=== PATIENT | female | born 1960 | race Caucasian/White ===

== ENCOUNTER 2020-10-15 16:38 | Inpatient (IN) | payer MEDICAID, OTHER ==
[~2020-10-15] VITALS: Ht 167.6 cm; Wt 68.2 kg
[2020-10-15] MEDS ORDERED: cloNIDine HCL 0.1 MG TAB PO ONE (17:00)
[2020-10-15] MEDS ORDERED: methylPREDNISolone SOD SUCC 125 MG/2 ML VL IV ONE (17:15)
[2020-10-15 17:45] LABS: Basophils # (auto) 0 10 ^3/uL (0-0.2); Basophils % (auto) 0.8 % (0.0-2.0); Eosinophils # (auto) 0.1 10 ^3/uL (0-0.8); Eosinophils % (auto) 2.1 % (0.0-7.0); Hematocrit 37.3 % (36.0-46.0); Hemoglobin 12.5 g/dL (12.2-16.2); Lymphocytes # (auto) 1.5 10 ^3/uL (0.4-5.4); Lymphocytes % (auto) 31.1 % (10.0-50.0); Mean Corpuscular Hemoglobin 31.3 pg (28.0-32.0); Mean Corpuscular Hgb Conc. 33.6 g/dL (32.0-36.0); Mean Corpuscular Volume 93.3 fL (80.0-100.0); Monocytes # (auto) 0.3 10 ^3/uL (0-1.3); Monocytes % (auto) 5.5 % (0.0-12.0); Neutrophils # (auto) 2.9 10 ^3/uL (1.6-8.6); Neutrophils % (auto) 60.5 % (37.0-80.0); Red Cell Distribution Width 15.7 % (11.8-14.3); White Blood Cell 4.9 10^3/uL (4.4-10.8)
[2020-10-15 18:01] LABS: Albumin 3.4 g/dL (3.4-5.0); Calcium 8.7 mg/dL (8.5-10.1); Magnesium 2.3 mg/dL (1.6-2.6); Potassium 3.8 mmol/L (3.5-5.1)
[2020-10-15 18:03] LABS: BUN/Creatinine Ratio 13.2
[2020-10-15 18:20] LABS: Bilirubin, Total 0.7 mg/dL (0.2-1.0); Total Protein 7.8 g/dL (6.4-8.2)
[2020-10-15 19:18] LABS: INR 1.06 (0.9-1.15); Partial Thromboplastin Time 26.4 sec (23.0-31.2)
[2020-10-15] MEDS ORDERED: METOPROLOL TARTRATE 25 MG TAB PO ONE (20:45)
[2020-10-15] MEDS ORDERED: cefTRIAXone SOD 1,000 MG VL IM ONE (20:45)
[2020-10-15] MEDS ORDERED: LIDOCAINE 2% (LOCAL ANESTH.) PF 5ml SDV ONE (21:03)
[2020-10-15] MEDS ORDERED: LIDOCAINE 2% (LOCAL ANESTH.) PF 5ml SDV IJ ONE (21:15)
[2020-10-15] MEDS ORDERED: LORazepam 0.5 MG TAB PO ONE (23:15)
[2020-10-16] MEDS ORDERED: AZITHROMYCIN 500MG/ 250ML 250 ML IV ONE
[2020-10-16] MEDS ORDERED: ALBUTEROL SULF 2.5 MG/0.5ML(0.5%) NEB SOLN NEB PRN (00:30)
[2020-10-16] MEDS ORDERED: NITROGLYCERIN 0.4 MG SL TAB SL PRN (00:30)
[2020-10-16] MEDS ORDERED: ONDANSETRON HCL 4 MG/2 ML VIAL IV PRN (00:30)
[2020-10-16] MEDS ORDERED: TEMAZEPAM 15 MG CAP PO PRN (00:30)
[2020-10-16] MEDS ORDERED: MORPHINE SULFATE INJECTION 2 MG/ML SYRG IV PRN (00:30)
[2020-10-16] MEDS ORDERED: ACETAMINOPHEN 325 MG TAB PO PRN (00:30)
[2020-10-16] MEDS ORDERED: FUROSEMIDE 20 MG/2 ML VIAL IV ONE ×2 (03:00)
[2020-10-16] MEDS ORDERED: LORazepam 2MG/ML-1ML VIAL ONE (04:22)
[2020-10-16 04:39] LABS: Urine Amorphous Crystal FEW /hpf (None Seen); Urine Bacteria FEW /hpf (None Seen); Urine Blood 1+ /uL (Negative); Urine Hyaline Cast FEW /lpf (0 - 2); Urine Specific Gravity 1.006 (1.001-1.035); Urine WBC 2 /hpf (0 - 5)
[2020-10-16 04:42] LABS: Alcohol, Urine < 3.0 mg/dL (0-10); Amphetamine Screen, Urine POSITIVE (NEGATIVE); Barbiturate Scree,Urine NEGATIVE (NEGATIVE); Benzodiazephine Screen, Urine NEGATIVE (NEGATIVE); Cannabinoid Screen, Urine NEGATIVE (NEGATIVE); Cocaine Screen, Urine NEGATIVE (NEGATIVE); Opiate Scree,Urine NEGATIVE (NEGATIVE); Phencyclidine Screen, Urine NEGATIVE (NEGATIVE)
[2020-10-16] MEDS ORDERED: LORazepam 2MG/ML-1ML VIAL IV ONE (04:45)
[2020-10-16 04:46] LABS: Lactic Acid w/Reflex 3.7 mmol/L (0.4-2.0)
[2020-10-16] MEDS: FUROSEMIDE 40 MG/4 ML VIAL IV SCH ×2 (07:00→18:20)
[2020-10-16] MEDS ORDERED: METOPROLOL TARTRATE 25 MG TAB PO SCH (10:00)
[2020-10-16] MEDS: SACUBITRIL-VALSARTAN 24mg/26mg TAB PO SCH ×2 (10:00→22:00)
[2020-10-16] MEDS: ASPirin 81 mg TAB PO SCH (10:00)
[2020-10-16] MEDS ORDERED: amLODIPine BESYLATE 5 MG TAB PO SCH (10:00)
[2020-10-16] MEDS: PANTOPRAZOLE 40 MG TAB PO SCH (10:00)
[2020-10-16] MEDS: CARVEDILOL 12.5 MG TAB PO SCH ×2 (10:00→22:00)
[2020-10-16] MEDS: ENOXAPARIN SOD 40 MG/0.4 ML SYRINGE SC SCH (10:35)
[2020-10-16] MEDS: AZITHROMYCIN 500MG/ 250ML 250 ML IV SCH (10:35)
[2020-10-16] MEDS ORDERED: LORazepam 2MG/ML-1ML VIAL IV PRN (15:45)
[2020-10-17 06:00] LABS: Basophils # (auto) 0.1 10 ^3/uL (0-0.2); Basophils % (auto) 0.8 % (0.0-2.0); Eosinophils # (auto) 0 10 ^3/uL (0-0.8); Eosinophils % (auto) 0.1 % (0.0-7.0); Hematocrit 38.4 % (36.0-46.0); Hemoglobin 12.8 g/dL (12.2-16.2); Lymphocytes # (auto) 1.7 10 ^3/uL (0.4-5.4); Lymphocytes % (auto) 21.9 % (10.0-50.0); Mean Corpuscular Hemoglobin 31.2 pg (28.0-32.0); Mean Corpuscular Hgb Conc. 33.2 g/dL (32.0-36.0); Monocytes # (auto) 0.4 10 ^3/uL (0-1.3); Monocytes % (auto) 5.1 % (0.0-12.0); Neutrophils # (auto) 5.5 10 ^3/uL (1.6-8.6); Neutrophils % (auto) 72.1 % (37.0-80.0); Nucleated Red Blood Cells % 0.1 %; Red Blood Cells 4.09 10^6/uL (4.0-5.20); Red Cell Distribution Width 15.3 % (11.8-14.3); White Blood Cell 7.6 10^3/uL (4.4-10.8)
[2020-10-17] MEDS: FUROSEMIDE 40 MG/4 ML VIAL IV SCH ×2 (06:04→18:51)
[2020-10-17 06:14] LABS: INR 1.12 (0.9-1.15); Partial Thromboplastin Time 25.1 sec (23.0-31.2)
[2020-10-17 06:49] LABS: Magnesium 2.2 mg/dL (1.6-2.6); Potassium 3.4 mmol/L (3.5-5.1)
[2020-10-17 06:53] LABS: BUN/Creatinine Ratio 18.8; Bilirubin, Total 0.6 mg/dL (0.2-1.0); Phosphorus 3.6 mg/dL (2.5-4.90); Total Protein 7.3 g/dL (6.4-8.2)
[2020-10-17] MEDS: AZITHROMYCIN 500MG/ 250ML 250 ML IV SCH (08:20)
[2020-10-17] MEDS: ENOXAPARIN SOD 40 MG/0.4 ML SYRINGE SC SCH (08:20)
[2020-10-17] MEDS: ASPirin 81 mg TAB PO SCH (08:29)
[2020-10-17] MEDS: SACUBITRIL-VALSARTAN 24mg/26mg TAB PO SCH (08:29)
[2020-10-17] MEDS: CARVEDILOL 12.5 MG TAB PO SCH ×2 (08:29→22:49)
[2020-10-17] MEDS: PANTOPRAZOLE 40 MG TAB PO SCH (08:29)
[2020-10-17] MEDS ORDERED: cefTRIAXone 1GM/50ML D5W 50 ML IV ONE (10:15)
[2020-10-17] MEDS ORDERED: POTASSIUM CHL 20 Meq TABLET PO ONE (11:45)
[2020-10-17] MEDS: hydrALAZINE HCL 10 MG TAB PO SCH ×2 (13:32→22:49)
[2020-10-17 21:46] VITALS: BP 131/77
[2020-10-17] MEDS ORDERED: ATORVASTATIN 20 MG TAB PO SCH (22:00)
[2020-10-17 23:33] VITALS: BP 131/77
[2020-10-18 05:00] VITALS: BP_SYST 111; BP_SYST 142; BP_DIAS 72; BP_DIAS 90
[2020-10-18] MEDS: hydrALAZINE HCL 10 MG TAB PO SCH (06:25)
[2020-10-18] MEDS: FUROSEMIDE 40 MG/4 ML VIAL IV SCH (06:25)
[2020-10-18 06:36] LABS: Basophils # (auto) 0 10 ^3/uL (0-0.2); Basophils % (auto) 0.7 % (0.0-2.0); Eosinophils # (auto) 0 10 ^3/uL (0-0.8); Eosinophils % (auto) 0.7 % (0.0-7.0); Hematocrit 43.4 % (36.0-46.0); Hemoglobin 14.6 g/dL (12.2-16.2); Lymphocytes # (auto) 1.6 10 ^3/uL (0.4-5.4); Lymphocytes % (auto) 31.4 % (10.0-50.0); Mean Corpuscular Hemoglobin 31.1 pg (28.0-32.0); Mean Corpuscular Hgb Conc. 33.6 g/dL (32.0-36.0); Mean Corpuscular Volume 92.5 fL (80.0-100.0); Monocytes # (auto) 0.3 10 ^3/uL (0-1.3); Monocytes % (auto) 6.4 % (0.0-12.0); Neutrophils # (auto) 3.2 10 ^3/uL (1.6-8.6); Neutrophils % (auto) 60.8 % (37.0-80.0); Nucleated Red Blood Cells % 0.1 %; Red Cell Distribution Width 15.3 % (11.8-14.3); White Blood Cell 5.2 10^3/uL (4.4-10.8)
[2020-10-18 06:46] LABS: BUN/Creatinine Ratio 19.1; Calcium 8.2 mg/dL (8.5-10.1); Potassium 3.7 mmol/L (3.5-5.1)
[2020-10-18 08:00] VITALS: BP 111/61
[2020-10-18] MEDS ORDERED: cefTRIAXone 1GM/50ML D5W 50 ML IV SCH (09:00)
[2020-10-18] MEDS: AZITHROMYCIN 500MG/ 250ML 250 ML IV SCH (09:38)
[2020-10-18] MEDS: CARVEDILOL 12.5 MG TAB PO SCH (09:39)
[2020-10-18] MEDS: PANTOPRAZOLE 40 MG TAB PO SCH (09:39)
[2020-10-18] MEDS: ENOXAPARIN SOD 40 MG/0.4 ML SYRINGE SC SCH (09:39)
[2020-10-18] MEDS: ASPirin 81 mg TAB PO SCH (09:40)
[2020-10-18] MEDS ORDERED: POTASSIUM CHL 10 Meq TABLET PO SCH (10:00)
[2020-10-18] MEDS ORDERED: LOSARTAN POTASSIUM 25 MG TAB PO ONE (12:00)
[2020-10-18 16:18] VITALS: BP_SYST 133; BP_SYST 159; BP_DIAS 75; BP_DIAS 89
[2020-10-19] MEDS ORDERED: LOSARTAN POTASSIUM 25 MG TAB PO SCH (10:00)
[2020-10-19] MEDS ORDERED: FUROSEMIDE 40 MG/4 ML VIAL IV SCH (10:00)
== END 2020-10-18 18:06 | disposition left against medical advice (07) | DRG 133 ==
LOC: ER 16:38 → TELE 16:39 → TELE-CENTR 10-17 21:43
PROVIDERS: ADMIT Nurse Practitioner; ATTEND Internal Medicine Nephrology
DX: J96.01 Acute respiratory failure with hypoxia (principal); I13.0 Hypertensive heart and chronic kidney disease with heart failure and stage 1 through stage 4 chronic kidney disease, or unspecified chronic kidney disease; E78.5 Hyperlipidemia, unspecified; F41.0 Panic disorder [episodic paroxysmal anxiety]; I50.43 Acute on chronic combined systolic (congestive) and diastolic (congestive) heart failure; I42.9 Cardiomyopathy, unspecified; I16.1 Hypertensive emergency; Z53.29 Procedure and treatment not carried out because of patient's decision for other reasons; R00.0 Tachycardia, unspecified; F23 Brief psychotic disorder; N18.32 Chronic kidney disease, stage 3b; Z20.822 Contact with and (suspected) exposure to COVID-19; G89.29 Other chronic pain; F15.10 Other stimulant abuse, uncomplicated; F19.10 Other psychoactive substance abuse, uncomplicated; M35.1 Other overlap syndromes; Z72.0 Tobacco use; Z91.041 Radiographic dye allergy status; Z91.14 Patient's other noncompliance with medication regimen; Z78.1 Physical restraint status; N17.9 Acute kidney failure, unspecified
CPT/HCPCS: 36415; 36600; 70450; 71045; 72125; 80048; 80053; 80307; 81001; 82805; 83605; 83735; 83880; 84100; 84484; 85025; 85379; 85610; 85730; 87040; 87426; 93005; 93306; 96372; 96374; 96375; G0378; J0696; J2001

== ENCOUNTER 2020-10-30 15:22 | Inpatient (IN) | payer MEDICAID ==
[~2020-10-30] VITALS: Ht 170.2 cm; Wt 77.1 kg
[2020-10-30] MEDS ORDERED: FUROSEMIDE 40 MG/4 ML VIAL IV ONE (16:00)
[2020-10-30] MEDS ORDERED: cefTRIAXone 1GM/50ML D5W 50 ML IV ONE (16:00)
[2020-10-30 16:29] LABS: Basophils # (auto) 0.1 10 ^3/uL (0-0.2); Basophils % (auto) 1.4 % (0.0-2.0); Eosinophils # (auto) 0 10 ^3/uL (0-0.8); Hemoglobin 12.7 g/dL (12.2-16.2); Lymphocytes % (auto) 23.5 % (10.0-50.0); Mean Corpuscular Hemoglobin 31.1 pg (28.0-32.0); Mean Corpuscular Hgb Conc. 33.3 g/dL (32.0-36.0); Mean Corpuscular Volume 93.5 fL (80.0-100.0); Monocytes # (auto) 0.2 10 ^3/uL (0-1.3); Monocytes % (auto) 4.1 % (0.0-12.0); Neutrophils # (auto) 2.9 10 ^3/uL (1.6-8.6); Nucleated Red Blood Cells % 0.1 %; Platelet Count (auto) 153 10^3/uL (140-450); Red Blood Cells 4.07 10^6/uL (4.0-5.20); Red Cell Distribution Width 15.5 % (11.8-14.3); White Blood Cell 4.1 10^3/uL (4.4-10.8)
[2020-10-30] MEDS ORDERED: MORPHINE SULF INJ 2 MG/ML SYRINGE 1ML IV ONE (16:30)
[2020-10-30] MEDS ORDERED: ONDANSETRON HCL 4 MG/2 ML VIAL IV ONE (16:30)
[2020-10-30 16:48] LABS: Albumin 3.3 g/dL (3.4-5.0); BUN/Creatinine Ratio 14.4; Calcium 8.4 mg/dL (8.5-10.1); Potassium 3.8 mmol/L (3.5-5.1)
[2020-10-30 16:52] LABS: Bilirubin, Total 0.7 mg/dL (0.2-1.0)
[2020-10-30] MEDS ORDERED: HYDROcodone-ACET 5/325MG TAB PO PRN (18:00)
[2020-10-30] MEDS ORDERED: NITROGLYCERIN 0.4 MG SL TAB SL PRN (18:00)
[2020-10-30] MEDS ORDERED: MORPHINE SULF INJ 2 MG/ML SYRINGE 1ML IV PRN (18:00)
[2020-10-30] MEDS ORDERED: hydrALAZINE HCL 20 MG/ML VL IV PRN (18:00)
[2020-10-30 18:55] LABS: Cholesterol 164 mg/dL (< 200); HDL Cholesterol 44 mg/dL (40-59); LDL Cholesterol 115 mg/dL (< 100); Triglycerides 89 mg/dL (< 150)
[2020-10-30] MEDS: ALBUTEROL SULF 2.5 MG/0.5ML(0.5%) NEB SOLN NEB SCH (19:47)
[2020-10-30] MEDS: CARVEDILOL 3.125 MG TAB PO SCH (20:51)
[2020-10-30] MEDS: ATORVASTATIN 20 MG TAB PO SCH (20:52)
[2020-10-30 21:54] VITALS: BP 166/102
[2020-10-30 23:53] LABS: Urine Bacteria FEW /hpf (None Seen); Urine Blood Negative /uL (Negative); Urine Hyaline Cast FEW /lpf (0 - 2); Urine Mucus FEW (None Seen); Urine Specific Gravity 1.008 (1.001-1.035); Urine WBC <1 /hpf (0 - 5)
[2020-10-31 00:01] LABS: Amphetamine Screen, Urine POSITIVE (NEGATIVE); Barbiturate Scree,Urine NEGATIVE (NEGATIVE); Benzodiazephine Screen, Urine NEGATIVE (NEGATIVE); Cannabinoid Screen, Urine NEGATIVE (NEGATIVE); Cocaine Screen, Urine NEGATIVE (NEGATIVE); Opiate Scree,Urine NEGATIVE (NEGATIVE); Phencyclidine Screen, Urine NEGATIVE (NEGATIVE)
[2020-10-31 00:03] LABS: Alcohol, Urine < 3.0 mg/dL (0-10)
[2020-10-31] MEDS ORDERED: ACETAMINOPHEN 325 MG TAB PO PRN (02:00)
[2020-10-31 02:55] VITALS: BP 124/70
[2020-10-31 05:00] VITALS: BP 129/77
[2020-10-31] MEDS: FUROSEMIDE 20 MG/2 ML VIAL IV SCH ×2 (05:51→18:39)
[2020-10-31 08:35] VITALS: BP 135/80
[2020-10-31] MEDS: ALBUTEROL SULF 2.5 MG/0.5ML(0.5%) NEB SOLN NEB SCH ×3 (08:35→19:45)
[2020-10-31] MEDS: ASPirin 81 mg TAB PO SCH (09:16)
[2020-10-31] MEDS: FAMOTIDINE (10MG/ML) 2ML VL IV SCH (09:16)
[2020-10-31] MEDS: CARVEDILOL 3.125 MG TAB PO SCH ×2 (09:16→21:09)
[2020-10-31 09:44] LABS: BUN/Creatinine Ratio 13.6; Calcium 8.3 mg/dL (8.5-10.1); Magnesium 1.8 mg/dL (1.6-2.6); Potassium 3.8 mmol/L (3.5-5.1)
[2020-10-31 13:03] VITALS: BP 129/79
[2020-10-31] MEDS: MORPHINE SULF INJ 2 MG/ML SYRINGE 1ML IV PRN ×2 (14:13→21:37)
[2020-10-31 17:00] VITALS: BP 154/100
[2020-10-31] MEDS: DOXYCYCLINE 100 MG TAB/CAP PO SCH (21:10)
[2020-10-31] MEDS: ATORVASTATIN 20 MG TAB PO SCH (21:10)
[2020-10-31 22:00] VITALS: BP 128/76
[2020-10-31] MEDS: ALPRAZolam 0.5 MG TAB PO PRN (22:15)
[2020-11-01] VITALS (8 sets, daily range): BP systolic 111–138; BP diastolic 62–89
[2020-11-01] MEDS: FUROSEMIDE 20 MG/2 ML VIAL IV SCH ×2 (04:57→18:26)
[2020-11-01 06:44] LABS: BUN/Creatinine Ratio 15.4; Calcium 8.1 mg/dL (8.5-10.1); Potassium 3.5 mmol/L (3.5-5.1)
[2020-11-01] MEDS: ALBUTEROL SULF 2.5 MG/0.5ML(0.5%) NEB SOLN NEB SCH ×3 (08:00→19:48)
[2020-11-01] MEDS: ZINC SULFATE 220mg CAP or TAB PO SCH (10:19)
[2020-11-01] MEDS: FAMOTIDINE (10MG/ML) 2ML VL IV SCH (10:19)
[2020-11-01] MEDS: ASPirin 81 mg TAB PO SCH (10:19)
[2020-11-01] MEDS: ASCORBIC ACID 500 MG TAB PO SCH (10:21)
[2020-11-01] MEDS: CHOLECALCIFEROL (VITD3) 2,000 UNIT CAP/TAB PO SCH (10:21)
[2020-11-01] MEDS: DOXYCYCLINE 100 MG TAB/CAP PO SCH ×2 (10:22→22:00)
[2020-11-01] MEDS: CARVEDILOL 3.125 MG TAB PO SCH ×3 (10:23→22:01)
[2020-11-01] MEDS ORDERED: diphenhdrAMINE HCL 50 MG/1 ML VL IV PRN (11:15)
[2020-11-01] MEDS: ATORVASTATIN 20 MG TAB PO SCH (22:01)
[2020-11-01] MEDS: MORPHINE SULF INJ 2 MG/ML SYRINGE 1ML IV PRN (22:11)
[2020-11-02] MEDS: ALPRAZolam 0.5 MG TAB PO PRN (00:56)
[2020-11-02 05:00] VITALS: BP 119/81
[2020-11-02] MEDS: FUROSEMIDE 20 MG/2 ML VIAL IV SCH (05:25)
[2020-11-02] MEDS: ALBUTEROL SULF 2.5 MG/0.5ML(0.5%) NEB SOLN NEB SCH ×2 (07:30→11:30)
[2020-11-02 08:00] VITALS: BP 123/63
[2020-11-02 09:00] VITALS: BP 123/63
[2020-11-02] MEDS: ASPirin 81 mg TAB PO SCH (09:20)
[2020-11-02] MEDS: ASCORBIC ACID 500 MG TAB PO SCH (09:21)
[2020-11-02] MEDS: FAMOTIDINE (10MG/ML) 2ML VL IV SCH (09:21)
[2020-11-02] MEDS: CHOLECALCIFEROL (VITD3) 2,000 UNIT CAP/TAB PO SCH (09:21)
[2020-11-02] MEDS: CARVEDILOL 3.125 MG TAB PO SCH (09:23)
[2020-11-02] MEDS: ZINC SULFATE 220mg CAP or TAB PO SCH (09:23)
[2020-11-02] MEDS: DOXYCYCLINE 100 MG TAB/CAP PO SCH (09:30)
[2020-11-02] MEDS ORDERED: DIGOXIN 0.125 MG TAB PO SCH (10:00)
[2020-11-02 11:13] LABS: BUN/Creatinine Ratio 21.9; Calcium 8.3 mg/dL (8.5-10.1)
[2020-11-02] MEDS ORDERED: ALBUAER3 IN (11:26)
[2020-11-02] MEDS ORDERED: ENAL5TAB10 PO (11:26)
[2020-11-02] MEDS ORDERED: ATOR20TA50 PO (11:26)
[2020-11-02] MEDS ORDERED: CHOL1CAP47 PO (11:26)
[2020-11-02] MEDS ORDERED: FURO20TA3 PO (11:26)
[2020-11-02] MEDS ORDERED: DIGO1TAB48 PO (11:26)
[2020-11-02] MEDS ORDERED: CARV6.25 PO (11:26)
[2020-11-02] MEDS ORDERED: ASPI1CHW15 PO (11:26)
[2020-11-02] MEDS ORDERED: ASCO500T11 PO (11:26)
[2020-11-02] MEDS ORDERED: DOX100T PO (11:26)
[2020-11-02 13:00] VITALS: BP 119/73
[2020-11-02 13:11] VITALS: BP 123/63
[2020-11-03] MEDS ORDERED: SACUBITRIL-VALSARTAN 24mg/26mg TAB PO SCH (10:00)
== END 2020-11-02 16:00 | disposition home or self-care (01) | DRG 137 ==
LOC: ER 15:22 → TELE 15:23 → TELE-WESTW 10-31 02:54
PROVIDERS: ADMIT Nurse Practitioner Acute Care; ATTEND Internal Medicine
PROC: XW13325 Transfusion of Convalescent Plasma (Nonautologous) into Peripheral Vein, Percutaneous Approach, New Technology Group 5 (ICD-10-PCS; principal; 2020-11-01)
DX: U07.1 COVID-19 (principal); I50.23 Acute on chronic systolic (congestive) heart failure; I13.0 Hypertensive heart and chronic kidney disease with heart failure and stage 1 through stage 4 chronic kidney disease, or unspecified chronic kidney disease; I42.0 Dilated cardiomyopathy; N18.32 Chronic kidney disease, stage 3b; E44.1 Mild protein-calorie malnutrition; F15.10 Other stimulant abuse, uncomplicated; I42.7 Cardiomyopathy due to drug and external agent; F17.210 Nicotine dependence, cigarettes, uncomplicated; T43.625A Adverse effect of amphetamines, initial encounter; M32.9 Systemic lupus erythematosus, unspecified; F41.9 Anxiety disorder, unspecified; J44.9 Chronic obstructive pulmonary disease, unspecified; E78.5 Hyperlipidemia, unspecified; Z80.0 Family history of malignant neoplasm of digestive organs; Z80.6 Family history of leukemia; Z82.49 Family history of ischemic heart disease and other diseases of the circulatory system; Z83.3 Family history of diabetes mellitus; Z90.49 Acquired absence of other specified parts of digestive tract; Z91.041 Radiographic dye allergy status; Z68.21 Body mass index [BMI] 21.0-21.9, adult; Y92.89 Other specified places as the place of occurrence of the external cause
CPT/HCPCS: 36415; 71045; 80048; 80053; 80061; 80307; 81001; 83605; 83735; 83880; 84484; 85025; 86850; 86900; 86901; 87040; 87081; 87426; 94640; 96365; 96375; 99291; G0378; J0696; J2405; J3490